=== PATIENT | male | born 1955 | race Caucasian/White ===

== ENCOUNTER 2018-01-12 22:31 | Inpatient (IN) | payer BC, OTHER ==
[~2018-01-12] VITALS: Ht 175.3 cm; Wt 107.4 kg
[2018-01-12] MEDS ORDERED: SODIUM CHLORIDE FLUSH 10ML SYR IVF ONE (23:00)
[2018-01-12] MEDS ORDERED: ALBUTEROL SULFATE 2.5 MG/3 ML NPPB ONE (23:00)
[2018-01-12] MEDS ORDERED: ALBUTEROL/IPRATROPIUM 2.5MG/0.5MG, 3 ML NPPB ONE (23:00)
[2018-01-12] MEDS ORDERED: ALBUTEROL/IPRATROPIUM 2.5MG/0.5MG, 3 ML ONE (23:06)
[2018-01-12 23:14] LABS: BASOPHILS # (AUTO) 0.02 x10^3/uL (0-0.1); BASOPHILS % (AUTO) 0 % (0-1); EOSINOPHILS # (AUTO) 0.37 x10^3/uL (0-0.4); EOSINOPHILS % (AUTO) 4 % (1-7); LYMPHOCYTES # (AUTO) 1.17 x10^3/uL (1-3.4); LYMPHOCYTES % (AUTO) 12 % (22-44); MD NO; MEAN CORPUSCULAR HEMOGLOBIN 32.5 pg (27.5-34.5); MEAN CORPUSCULAR HGB CONC 34.1 g/dL (33.2-36.2); MEAN CORPUSCULAR VOLUME 95.5 fL (81-97); MEAN PLATELET VOLUME 8.4 fL (7.4-10.4); MONOCYTES # (AUTO) 0.96 x10^3/uL (0.2-0.8); MONOCYTES % (AUTO) 10 % (2-9); NEUTROPHILS # (AUTO) 7.21 x10^3/uL (1.8-6.8); NEUTROPHILS % (AUTO) 74 % (42-75); PLATELET COUNT 184 x10^3/uL (130-400); RED BLOOD COUNT 4.84 x10^6/uL (4.38-5.82); RED CELL DISTRIBUTION WIDTH 13.8 % (9.4-14.8)
[2018-01-12] MEDS ORDERED: LOSA1TAB25 PO (23:19)
[2018-01-12 23:22] LABS: ALANINE AMINOTRANSFERASE 46 U/L (12-78); ALBUMIN 3.4 g/dL (3.4-5.0); ANION GAP 7 mmol/L (5-15); CALCIUM 8.2 mg/dL (8.5-10.1); CHLORIDE 106 mmol/L (98-107); CREATININE 1.13 mg/dL (0.7-1.3)
[2018-01-12] MEDS ORDERED: PROM118S4 PO (23:22)
[2018-01-12] MEDS ORDERED: [UNRECOGNIZED DRUG - CODE] PO (23:23)
[2018-01-12 23:24] LABS: ALKALINE PHOSPHATASE 82 U/L (45-117); BILIRUBIN,TOTAL 0.6 mg/dL (0.2-1.0)
[2018-01-12] MEDS ORDERED: BENZ-17 PO (23:25)
[2018-01-12] MEDS ORDERED: IPRA0.2S35 INH (23:27)
[2018-01-13] VITALS (7 sets, daily range): BP systolic 103–133; BP diastolic 47–82
[2018-01-13] MEDS ORDERED: ALBUTEROL SULFATE 2.5 MG/3 ML ONE (00:28)
[2018-01-13] MEDS ORDERED: SODIUM CHLORIDE FLUSH 10ML SYR IVF PRN (00:30)
[2018-01-13] MEDS ORDERED: ALBUTEROL SULFATE 2.5 MG/3 ML NPPB ONE (00:30)
[2018-01-13] MEDS: ALBUTEROL/IPRATROPIUM 2.5MG/0.5MG, 3 ML NPPB SCH ×6 (06:00→22:00)
[2018-01-13] MEDS ORDERED: NS + 20MEQ KCL 1,000 ML IV SCH (06:15)
[2018-01-13] MEDS ORDERED: morphine SULFATE 10 MG/ML, 1ML IVPush PRN (06:30)
[2018-01-13] MEDS ORDERED: GUAIFENESIN/DM 200-20MG, 10ML UDC PO PRN (06:30)
[2018-01-13] MEDS ORDERED: ONDANSETRON 2MG/ML, 2ML IVPush PRN (06:30)
[2018-01-13] MEDS ORDERED: HYDROcodone/APAP 5/325 TABLET PO PRN (06:30)
[2018-01-13] MEDS ORDERED: ACETAMINOPHEN 325 MG TABLET PO PRN (06:30)
[2018-01-13] MEDS ORDERED: DOCUSATE 100 MG CAPSULE PO PRN (06:30)
[2018-01-13] MEDS ORDERED: IPRATROPIUM 0.5 MG/2.5 ML INHA NEB PRN (06:30)
[2018-01-13] MEDS ORDERED: POLYETHYLENE GLYCOL 17 GM PACKET PO PRN (06:30)
[2018-01-13] MEDS: methylPREDNISolone SOD SUCC 40 MG/ML IVPush SCH ×3 (08:21→22:22)
[2018-01-13] MEDS: SENNA/DOCUSATE TABLET PO SCH (09:00)
[2018-01-13] MEDS: NICOTINE 7 MG/24 HR PATCH.TD24 TD SCH (09:00)
[2018-01-13] MEDS: ENOXAPARIN 40 MG/0.4 ML SQ SCH (10:34)
[2018-01-13] MEDS: LOSARTAN 50MG TABLET PO SCH (10:34)
[2018-01-13] MEDS: AMOXICILLIN/CLAV 875-125MG TABLET PO SCH ×2 (10:34→20:44)
[2018-01-14 04:55] VITALS: BP 122/82
[2018-01-14] MEDS: ALBUTEROL/IPRATROPIUM 2.5MG/0.5MG, 3 ML NPPB SCH ×3 (06:00→14:00)
[2018-01-14] MEDS: methylPREDNISolone SOD SUCC 40 MG/ML IVPush SCH ×2 (06:00→14:30)
[2018-01-14 08:09] VITALS: BP 112/70
[2018-01-14] MEDS: SENNA/DOCUSATE TABLET PO SCH (09:00)
[2018-01-14] MEDS: NICOTINE 7 MG/24 HR PATCH.TD24 TD SCH (09:00)
[2018-01-14] MEDS: ENOXAPARIN 40 MG/0.4 ML SQ SCH (10:30)
[2018-01-14] MEDS: AMOXICILLIN/CLAV 875-125MG TABLET PO SCH (10:31)
[2018-01-14] MEDS: LOSARTAN 50MG TABLET PO SCH (10:31)
[2018-01-14 13:00] VITALS: BP 146/82
[2018-01-14] MEDS ORDERED: ALBUTEROL/IPRATROPIUM 2.5MG/0.5MG, 3 ML NPPB PRN (13:00)
[2018-01-14] MEDS ORDERED: AMOX1TAB12 PO (13:55)
[2018-01-14] MEDS ORDERED: GUAI5SYR PO (13:55)
[2018-01-14] MEDS ORDERED: METH4TAB2 PO (13:55)
[2018-01-14] MEDS ORDERED: PNEUMOCOCCAL VACC.PER PHARMACY IM ONE (14:30)
[2018-01-14] MEDS ORDERED: PNEUMOCOCCAL 23 VACCINE IM-VACC ONE (16:00)
== END 2018-01-14 16:20 | disposition home or self-care (01) | DRG 189 ==
LOC: ED 23:50 → EDIP 01-13 00:20 → 3NW 01-13 00:47
PROVIDERS: ADMIT Family Medicine; ATTEND Family Medicine
DX: J96.01 Acute respiratory failure with hypoxia (principal); G90.8 Other disorders of autonomic nervous system; J44.0 Chronic obstructive pulmonary disease with (acute) lower respiratory infection; J44.1 Chronic obstructive pulmonary disease with (acute) exacerbation; E66.9 Obesity, unspecified; F17.200 Nicotine dependence, unspecified, uncomplicated; R55 Syncope and collapse; J20.9 Acute bronchitis, unspecified; I10 Essential (primary) hypertension; Z68.35 Body mass index [BMI] 35.0-35.9, adult
CPT/HCPCS: 36415; 80053; 85025; 90732; 93005; 93306; 93880; 94640; 99285; J1650; J3480; J7613; J7620; J2920; J7512